=== PATIENT | female | born 1990 | race Two or more races ===

== ENCOUNTER → 2017-08-21 | Outpatient (CLI) | payer SELFPAY | LOC: CIMAGING 14:35 | PROVIDERS: ATTEND Family Medicine | DX: M25.571 Pain in right ankle and joints of right foot (principal); M25.561 Pain in right knee | CPT/HCPCS: 73562-PO; 73610-PO ==

== ENCOUNTER → 2018-03-20 | Outpatient (CLI) | payer MEDICAID | LOC: CLAB 15:52 → EDSTATUS 15:55 → CIMAGING 15:56 | PROVIDERS: ATTEND Family Medicine | DX: M51.36 Other intervertebral disc degeneration, lumbar region (principal); M51.37 Other intervertebral disc degeneration, lumbosacral region | CPT/HCPCS: 72100-PO ==